=== PATIENT | male | born 2000 | race Caucasian/White ===

== ENCOUNTER 2020-11-18 02:24 | Observation (INO) | payer OTHER ==
[~2020-11-18] VITALS: Ht 185.4 cm; Wt 117.9 kg
[~2020-11-18 02:24] MED LIST: ALBU90OI INH; AMOX500 PO; AMOX50SU PO; ANTOXYBENA OT; AZIT200SU PO; CEPH250SUA PO; CODACEE120 PO; CODGUAEL PO; Crutch1 EACH MISC; IBUP400 PO; IBUP600 PO; Naprosyn500 MG PO; RXIBUPSY; RXPROCODSY PO; Ultram50 MG PO; Veetids 500500 MG PO
[2020-11-18 02:54] LABS: BASOPHILS ABSOLUTE AUTO 0.08 K/mm3 (0.00-0.23); BASOPHILS PERCENT AUTO 0 % (0-2); EOSINOPHILS ABSOLUTE AUTO 0.07 K/mm3 (0.00-0.68); EOSINOPHILS PERCENT AUTO 0 % (0-6); Hematocrit 43.9 % (37.0-53.0); Hemoglobin 14.9 g/dL (13.5-17.5); IMMATURE GRAN ABSOLUTE AUTO 0.18 K/mm3 (0.00-0.10); IMMATURE GRAN PERCENT AUTO 1 % (0-1); LYMPHOCYTES ABSOLUTE AUTO 1.85 K/mm3 (0.84-5.20); LYMPHOCYTES PERCENT AUTO 10 % (21-46); MONOCYTES ABSOLUTE AUTO 0.98 K/mm3 (0.16-1.47); MONOCYTES PERCENT AUTO 5 % (4-13); Mean Corpuscular HGB 29.4 pg (26.0-34.0); Mean Corpuscular HGB Conc 33.9 g/dL (31.5-36.5); Mean Corpuscular Volume 87 fL (80-100); Mean Platelet Volume 9.6 fL (9.1-12.4); NEUTROPHILS ABSOLUTE AUTO 16.19 K/mm3 (1.96-9.15); NEUTROPHILS PERCENT AUTO 84 % (41-73); Platelet Count 345 K/mm3 (150-400); RDW Standard Deviation 40.5 fL (35.1-46.3); Red Blood Cell Count 5.07 M/mm3 (4.30-5.90); White Blood Cell Count 19.35 K/mm3 (4.00-11.30)
[2020-11-18 03:10] LABS: Prothrombin Time Results 10.8 Sec (9.7-11.5)
[2020-11-18 03:16] LABS: Alanine Aminotransfer (ALT/SGP 42 U/L (12-78); Albumin, Blood 4.3 g/dL (3.4-5.0); Albumin/Globulin Ratio 1.2 (0.8-1.8); Alk Phos 96 U/L (50-136); Anion Gap 7 mmol/L (6-16); Aspartate Aminotrans (AST/SGOT 45 U/L (12-37); Beta HCG, Quantitative, Serum <1 mIU/mL (0-1); Bilirubin, Total 0.4 mg/dL (0.1-1.0); Blood Urea Nitrogen 12 mg/dL (8-24); Bun/Creatinine Ratio 11.1 (12.0-20.0); CO2, Blood 25 mmol/L (21-32); Calcium, Blood 8.3 mg/dL (8.5-10.1); Chloride, Blood 105 mmol/L (98-108); Creatinine, Blood 1.08 mg/dL (0.60-1.20); Ethanol (Alcohol), Blood, Med 192 mg/dL; Globulin, Blood 3.6 g/dL (2.2-4.0); Glomerular Filtration Rate >60 (60-); Glucose, Blood 135 mg/dL (70-99); Potassium, Blood 3.5 mmol/L (3.5-5.5); Sodium, Blood 137 mmol/L (136-145); Total Protein, Blood 7.9 g/dL (6.4-8.2)
[2020-11-18 09:17] LABS: Source, Urine Clean Catch
[2020-11-18 09:38] LABS: Appearance, Urine Clear (Clear); Bilirubin, Urine Neg (Neg); Blood, Urine 5+ (Neg); Color, Urine Yellow (P-Yellow); Glucose Qualitative, Urine Neg (Neg); Ketones, Urine 2+ (Neg); Leukocyte Esterase, Urine Neg (Neg); Nitrite, Urine Neg (Neg); Protein, Urine 2+ (Neg); Specific Gravity, Urine 1.015 (1.003-1.022); Urobilinogen, Urine NORM (Normal)
[2020-11-18 09:49] LABS: White Blood Cells, Urine 0-2 /hpf (0-5)
[2020-11-18 09:50] LABS: Bacteria Rare /hpf; Hyaline Casts 0-2 /lpf (0-2); Squamous Epithelial Cells Few /hpf (Few)
[2020-11-18 09:51] LABS: U Amphetamine Screen Not Detected; U Barbituate Screen Not Detected; U Benzodiazapine Screen Not Detected; U Buprenorphine Screen Not Detected; U Cannabinoids Screen DETECTED; U Cocaine Screen Not Detected; U Methadone Screen Not Detected; U Methamphetamine Screen Not Detected; U Opiates Screen DETECTED; U Oxycodone Screen Not Detected; U Phencyclidine Screen Not Detected; U Propoxyphene Screen Not Detected
--- NOTE | 2020-11-18 10:29 | NUR ---
PT ARRIVED TO UNIT AT APROX 0845 FROM ED. PT TRANSFERED TO BED USING SLIDER SHEET. LLE WITH KNEE IMOBILIZER IN PLACE. PT ABLE TO WIGGLE TOES AND REPORTS FULL SENSATION TO BLE. DENIES PAIN AT TIME OF ARRIVAL. PT BEGAN VOMITING WHEN REPOSITIONING, MEDICATED WITH 4MG ZOFRAN AT 0900, AT APROX 0945 PT BEGAN VOMITING AGAIN AND MEDICATED WITH 12.5 PHENERGAN. NEURO ASSESSMENT WNL.
--- NOTE | 2020-11-18 14:31 | NUR ---
REASSESS TO LLE NO INCREASED PAIN OR SWELLING, STRONG PEDAL PULSE PRESENT, GOOD CAP REFILL.
--- NOTE | 2020-11-18 16:28 | NUR ---
SHIFT SUMMARY PATIENT ARRIVED TO FLOOR AT APPROX 0845. PT HAD SEVERAL EPISODES OF NAUSEA AND VOMITING, WAS MEDICATED WITH ZOFRAN AND PHENERGEN PER EMAR. PATIENTS VITALS HAVE BEEN STABLE. PATIENT IS ON BEDREST AND LLE IS BEING IMMOBILIZED AND ELEVATED. PAIN IS BEING MANAGED PER EMAR. SPIRITUAL CARE CAME TO SEE PATIENT. REASSESSMENT OF LLE SHOWS NO INCREASED SWELLING OR PAIN. WILL REPORT TO THE ONCOMING RN.
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
--- NOTE | 2020-11-18 19:30 | NUR ---
RECEIVED REPORT AND ASSUMED CARE OF PT. HE IS LYING QUIETLY IN BED WITH HIS AT THE BEDSIDE. HE REPORTS HIS PAIN IS TOLERABLE AND DENIES ANY NEEDS AT THIS TIME.
--- NOTE | 2020-11-19 03:14 | NUR ---
SHIFT SUMMARY: MARIA DE JESUS IS A&OX4. VSS, NO ACUTE EVENTS OVERNIGHT. HE IS TOLERATING PO INTAKE WELL AND REPORTS ADEQUATE PAIN CONTROL WITH 2 TABLETS OF NORCO. HE IS ABLE TO MOVE/REPOSITION HIMSELF IN BED WELL. IMMOBILIZER IN PLACE TO LLE, BRISK CAPILLARY REFILL, ELEVATED ON PILLOWS. HE IS VOIDING WITHOUT DIFFICULTY, CONTINUES ON BEDREST AT THIS TIME. HE IS LYING IN BED WITH THE CALL LIGHT IN REACH. AT BEDSIDE. HE DOES USE THE CALL LIGHT APPROPRIATELY. WILL REPORT TO DAY SHIFT RN.
[2020-11-19] MEDS ORDERED: HYDR1TAB94 PO (15:12)
--- NOTE | 2020-11-19 16:26 | NUR ---
DISCHARGE SUMMARY VERBAL AND WRITTEN DISCHARGE INSTRUCTIONS PROVIDED, PT VERBALIZED UNDERSTANDING. IV REMOVED, TIP INTACT. ALL BELONGINGS GATHERED. PT D/C HOME WITH AND DAD PER VEHICLE.
== END 2020-11-19 16:15 | disposition home or self-care (01) ==
LOC: ER 02:24 → SURS 02:25
PROVIDERS: Emergency Medicine; ADMIT Surgery
DX: S83.195A Other dislocation of left knee, initial encounter (principal); V48.0XXA Car driver injured in noncollision transport accident in nontraffic accident, initial encounter; Y93.9 Activity, unspecified; Y92.410 Unspecified street and highway as the place of occurrence of the external cause; Z88.0 Allergy status to penicillin; Z72.0 Tobacco use; Z72.89 Other problems related to lifestyle
CPT/HCPCS: 70450; 71045; 72125; 72170; 73552; 73560-LT; 73706; 80053; 81001; 83605; 83690; 84702; 85025; 85610; 86850; 86900; 86901; 97116; 97161; A9270-GY; G0480; J2250; J2270; J2405; J2550; J2704; J7030; Q9967

== ENCOUNTER 2020-11-30 11:25 | Day surgery (SDC) | payer OTHER ==
[~2020-11-30] VITALS: Ht 182.9 cm; Wt 124.7 kg
[~2020-11-30 11:25] MED LIST changes: +HYDR1TAB94 PO
--- NOTE | 2020-11-30 16:16 | NUR ---
11/30/20 1616 Stacy Nunez PATIENT RESTING QUIETLY IN RECLINER, VERY DROWSY, VSS. PATIENT HAS NO C/O PAIN OR NAUSEA AT THIS TIME. [employer] NAILA ON. WILL CONTINUE TO MONITOR.
== END 2020-11-30 17:10 | disposition home or self-care (01) ==
LOC: ORSCSDS 11:25
PROVIDERS: Orthopaedic Surgery
PROC: 0SBD4ZZ Excision of Left Knee Joint, Percutaneous Endoscopic Approach (ICD-10-PCS; principal; 2020-11-30 12:30)
PROC: 0LMM0ZZ Reattachment of Left Upper Leg Tendon, Open Approach (ICD-10-PCS; principal; 2020-11-30 12:30)
DX: M94.262 Chondromalacia, left knee (principal); S83.282A Other tear of lateral meniscus, current injury, left knee, initial encounter; S83.412A Sprain of medial collateral ligament of left knee, initial encounter; S83.422A Sprain of lateral collateral ligament of left knee, initial encounter; S83.512A Sprain of anterior cruciate ligament of left knee, initial encounter; S83.522A Sprain of posterior cruciate ligament of left knee, initial encounter; V49.9XXA Car occupant (driver) (passenger) injured in unspecified traffic accident, initial encounter; E66.01 Morbid (severe) obesity due to excess calories; Z68.36 Body mass index [BMI] 36.0-36.9, adult
CPT/HCPCS: A9270; C1713; J0171; J1100; J2250; J2405; J2704; J2795; J3010; J7120

== ENCOUNTER 2021-06-05 12:18 | Day surgery (SDC) | payer OTHER ==
[~2021-06-05] VITALS: Ht 182.9 cm; Wt 123.6 kg
--- NOTE | 2021-06-05 12:40 | NUR ---
06/05/21 1240 STEVEN PÉREZ CALL LIGHT WITHIN REACH
--- NOTE | 2021-06-05 14:10 | NUR ---
06/05/21 1409 Wally Shelby 1 MG EPI ADDED TO EACH OF THE FIRST 3 BAGS OF LR FOR IRRIGATION PER ORDER.
--- NOTE | 2021-06-05 17:38 | NUR ---
06/05/21 1738 Yamila Morris PT NAUSEA WITH VOMITING, MEDICATED WITH ZOFRAN 4MG X1. PT STATES HE IS FEELING MUCH BETTER. PT PRESENT IN ROOM. NO QUESTIONS OR CONCERNS AT THIS TIME. NO COMPLAINTS OF PAIN.
== END 2021-06-05 17:45 | disposition home or self-care (01) ==
LOC: ORSCSDS 12:18
PROVIDERS: Orthopaedic Surgery
PROC: 0MRP47Z Replacement of Left Knee Bursa and Ligament with Autologous Tissue Substitute, Percutaneous Endoscopic Approach (ICD-10-PCS; principal; 2021-06-05 14:15)
PROC: 0SBD4ZZ Excision of Left Knee Joint, Percutaneous Endoscopic Approach (ICD-10-PCS; principal; 2021-06-05 14:15)
DX: S83.512A Sprain of anterior cruciate ligament of left knee, initial encounter (principal); S83.522A Sprain of posterior cruciate ligament of left knee, initial encounter; M23.201 Derangement of unspecified lateral meniscus due to old tear or injury, left knee; I10 Essential (primary) hypertension; J45.909 Unspecified asthma, uncomplicated; E66.01 Morbid (severe) obesity due to excess calories; Z68.36 Body mass index [BMI] 36.0-36.9, adult
CPT/HCPCS: C1713; C1762; C1776; J0171; J1100; J1885; J2250; J2405; J2704; J3010; J7120